=== PATIENT | male | born 1940 | race Caucasian/White ===

== ENCOUNTER → 2019-04-26 10:17 | Outpatient (CLI) | payer OTHER, SELFPAY ==
--- NOTE | 2019-04-26 | DI.MRI.S_ITS ---
PROCEDURE: MR LUMBAR SPINE WO CON INDICATIONS: LOWER BACK PAIN TECHNIQUE: Noncontrast sagittal T1 spin echo and T2 fast echo, sagittal STIR, axial T1 and T2 fast spin echo through the lumbar spine. In cases with scoliosis, additional coronal T2 fast spin echo may be performed. COMPARISON: None. FINDINGS: Image quality: Excellent. Alignment and Curvature: There is normal bony alignment. Bone Marrow: Marrow is of normal overall signal. No acute vertebral body compression fractures. Spinal Cord: Conus medullaris terminates at the T12-L1 level. Visualized cord demonstrates normal signal and size. Paraspinous Soft Tissues: No paravertebral masses. L1-L2: Normal appearance. L2-L3: Mild diffuse disc bulge and bilateral facet arthrosis with hypertrophy of ligamentum flavum is seen. No significant canal stenosis or neural foramina narrowing. L3-L4: Decreased intervertebral disc space and degenerative endplate changes are noted. There is broad-based disc bulge and bilateral facet arthrosis with hypertrophy of ligamentum flavum. Moderate central canal stenosis and moderate to severe right-sided neuroforaminal narrowing is seen. There is compression of the right L3 and L4 nerve roots at this level. Mild left-sided neuroforaminal narrowing is also noted. L4-L5: There is decreased intervertebral disc space. Broad-based, more right sided disc bulge and bilateral facet arthrosis is seen with mild central canal stenosis and moderate right-sided neuroforaminal narrowing. There is compression of right L4 nerve root. L5-S1: The mild diffuse disc bulge and bilateral facet arthrosis is seen with no significant central canal stenosis or neuroforaminal narrowing. IMPRESSION: 1. 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 2. No marrow edema. No acute compression fracture or spondylolisthesis. Dictated by: Sandro Sequeira M.D. on 04/26/2019 at 15:35 Approved by: Sandro Sequeira M.D. on 04/26/2019 at 15:37
== END ==
PROVIDERS: Visit Provider Student in an Organized Health Care Education/Training Program
DX: M54.5 Low back pain (principal)
CPT/HCPCS: 72148